=== PATIENT | female | born 1950 | race Caucasian/White ===

== ENCOUNTER → 2017-01-21 | Outpatient (CLI) | payer MEDICARE | END | disposition home or self-care (01) | LOC: CFH 13:39 | PROVIDERS: ATTEND Physician Assistant Medical | DX: I50.30 Unspecified diastolic (congestive) heart failure (principal); I08.3 Combined rheumatic disorders of mitral, aortic and tricuspid valves; I10 Essential (primary) hypertension; J43.9 Emphysema, unspecified | CPT/HCPCS: 93306 ==